=== PATIENT | male | born 1990 | race Caucasian/White ===

== ENCOUNTER → 2018-06-01 | Day surgery (SDC) | payer BC ==
[~2018-06-01] MED LIST: ADDERALL XR 2525 MG PO; FENTANYL CITRATE/PF 100MCG/2 ML INJ ONE; LIDOCAINE HCL 2% LOCAL INJ 5 ML SDV VIAL INJ ONE; METOPROLOL SUCC25 MG PO; MIDAZOLAM HCL 2 MG/2 ML VIAL ONE; PROPOFOL IV EMULSION 10 MG/ML 20 ML VIAL ONE; TRAZODONE HCL50 MG PO; TYLENOL # 31 EA PO; ZANTAC 7575 MG PO; ZOFRAN4 MG PO
[2018-06-01 10:45] VITALS: BP 125/68
--- NOTE | 2018-06-01 15:32 | Operative Report ---
DATE OF PROCEDURE: 06/01/2018 SURGEON: Enrique Harper MD PREOPERATIVE DIAGNOSIS: Chronic gastroesophageal reflux disease. POSTOPERATIVE DIAGNOSES: 1. Hiatal hernia. 2. Chronic gastroesophageal reflux disease. 3. Distal esophagitis near the GE junction. PREOPERATIVE INDICATION: Assess for mucosal disease, rule out hiatal hernia. PROCEDURE: Esophagogastroduodenoscopy with distal esophageal biopsy (CPT 46977). GOVERNMENT RELATIONS MANAGER: None. ANESTHESIA: Moderate sedation. GRAFTS: None. COMPLICATIONS: None. DRAINS: None. ESTIMATED BLOOD LOSS: Minimal. SPECIMENS: Distal esophageal biopsy at the GE junction. FINDINGS: 1. Small hiatal hernia. 2. Distal esophagitis near the GE junction. 3. Otherwise normal upper GI endoscopy. PROCEDURE IN DETAIL: The patient was brought to the endoscopy suite and was sedated with IV propofol. A preprocedure pause was performed. An adult-sized endoscope was introduced into the oropharynx and guided to the second portion of the duodenum. No duodenal or gastric abnormalities near the antrum were seen. There was a small hiatal hernia with distal esophagitis biopsied at the GE junction where the esophagitis was present and was obtained using cold forceps. Prior to removing the endoscope, I desufflated the stomach and the endoscope was removed. The patient tolerated the procedure well. Type of wound is type 1, clean. Enrique Harper MD [facility] /[id number]
== END | disposition home or self-care (01) ==
LOC: OR 08:02
PROVIDERS: ATTEND Surgery
DX: K21.9 Gastro-esophageal reflux disease without esophagitis (principal); K20.9 Esophagitis, unspecified; K44.9 Diaphragmatic hernia without obstruction or gangrene; I10 Essential (primary) hypertension; E66.01 Morbid (severe) obesity due to excess calories; Z68.37 Body mass index [BMI] 37.0-37.9, adult
CPT/HCPCS: 43239; J2001; J2250; J2704

== ENCOUNTER 2018-06-08 05:31 | Inpatient (IN) | payer BC ==
[~2018-06-08] VITALS: Ht 193 cm; Wt 136.1 kg
[~2018-06-08 05:31] MED LIST changes: -FENTANYL CITRATE/PF 100MCG/2 ML INJ ONE; -LIDOCAINE HCL 2% LOCAL INJ 5 ML SDV VIAL INJ ONE; -MIDAZOLAM HCL 2 MG/2 ML VIAL ONE; -PROPOFOL IV EMULSION 10 MG/ML 20 ML VIAL ONE; -TYLENOL # 31 EA PO; -ZOFRAN4 MG PO
[2018-06-08] MEDS ORDERED: CEFAZOLIN SOD 2 GM/D5W 50ML 50 ML IV ONE (06:24)
[2018-06-08 06:53] LABS: BASOPHILS # (AUTO) 0.1 (0.0-0.1); BASOPHILS % 0.7 % (0.0-1.0); EOSINOPHILS # (AUTO) 0.2 (0.0-0.4); EOSINOPHILS % 2.4 % (0.0-6.0); HEMATOCRIT 55.1 % (38.2-49.6); HEMOGLOBIN 18.9 g/dL (14.0-18.0); LYMPHOCYTES # (AUTO) 1.7 (1.0-3.2); MEAN CORPUSCULAR HEMOGLOBIN 30.6 pg (28-32); MEAN CORPUSCULAR HGB CONC 34.3 g/dL (31-35); MEAN CORPUSCULAR VOLUME 89.2 fL (81-99); MONOCYTES # (AUTO) 0.7 (0.2-0.8); MONOCYTES % 9.4 % (4.4-11.3); NEUTROPHILS % 65.1 % (38.7-80.0); PLATELET COUNT 249 x10e3/uL (140-360); RED BLOOD COUNT 6.18 x10e6/uL (4.3-5.7); RED CELL DISTRIBUTION WIDTH 12.7 % (11.7-14.4)
--- NOTE | 2018-06-08 07:10 | NUR ---
SPIRITUAL CARE - Pre-Surgery Assessment: Pt in bed. Pt's dad at bedside. Pt reported supportive attention from family and friends. Intervention: I provided pastoral presence, hospitality, and sympathetic listening. I acquainted pt with availability of teacher lip reading while hospitalized. Outcome: Pt expressed appreciation for visit. No need for follow up indicated at this time. [facility] Spiritual Care Department O: [phone] Pager: [phone] ([phone] calling from)
[2018-06-08] MEDS ORDERED: BUPIVACAINE 0.25% 30ML SDV INJ ONE (08:09)
[2018-06-08] MEDS ORDERED: SCOPOLAMINE 1.5 MG PATCH TOP SCH (09:30)
[2018-06-08] MEDS ORDERED: ONDANSETRON HCL INJ 2MG/ML 2ML 2 MG/ML VIAL IV PRN (09:30)
[2018-06-08] MEDS ORDERED: MORPHINE SULFATE INJ 4 MG/ML INJ 1ML ONE (09:37)
[2018-06-08] MEDS ORDERED: ONDANSETRON HCL INJ 2MG/ML 2ML 2 MG/ML VIAL ONE ×2 (10:07→17:35)
[2018-06-08] MEDS ORDERED: HYDROMORPHONE 2MG/ML 2 MG/ML ML ONE (10:53)
[2018-06-08] MEDS ORDERED: METOCLOPRAMIDE HCL 10 MG/2ML VIAL ONE (10:54)
--- NOTE | 2018-06-08 12:36 | Operative Report ---
DATE OF PROCEDURE: 06/08/2018 SURGEON: Enrique Harper MD PREOPERATIVE DIAGNOSES: 1. Hiatal hernia. 2. Chronic gastroesophageal reflux disease. POSTOPERATIVE DIAGNOSES: 1. Hiatal hernia. 2. Chronic gastroesophageal reflux disease. PREOPERATIVE INDICATIONS: Treat disease, prevent complications from hiatal hernia and GERD. PROCEDURE: Laparoscopic hiatal hernia repair. ANESTHESIA: General. CLEARANCE CENTER MANAGER: Iker Mcneill, surgical corsetier (needed due to complexity of case). FLUIDS: 2 liters of crystalloid. ESTIMATED BLOOD LOSS: 20 mL. DRAINS: None. COMPLICATIONS: None. SPECIMENS: None. GRAFTS: None. FINDINGS: Small hiatal hernia. PROCEDURE IN DETAIL: The patient was brought to the operating room and was intubated under general endotracheal anesthesia. He was sterilely prepped and draped in the usual fashion. A preprocedure pause was performed identifying the patient, use of perioperative antibiotics, intended procedure, and the staff surgeon. Access was gained via a 5 mm left subcostal incision using Veress needle. Abdomen was insufflated and four additional trocars were placed in standard position. Liver retractor was used to expose the hiatus. The gastrohepatic ligament was incised along the pars flaccida technique and the hernia sac was dissected off the left and right david to expose the hiatal hernia. This was then repaired with 2-0 Surgidac suture in an interrupted fashion. We achieved hemostasis, closed the large port site with 0 Vicryl suture, removed the trocars, the abdomen was desufflated and liver retractor was removed. We closed the incision site with 4-0 Monocryl suture in a subcuticular fashion. Dermabond dressings were applied. The patient tolerated the procedure well. Type of wound is type 1, clean. Enrique Harper MD [facility] /[id number]
--- NOTE | 2018-06-08 15:53 | Operative Report ---
DATE OF PROCEDURE: 06/08/2018 SURGEON: Enrique Harper MD PREOPERATIVE DIAGNOSES: 1. Morbid obesity, BMI 37. 2. Hypertension. 3. Hiatal hernia. POSTOPERATIVE DIAGNOSES: 1. Morbid obesity, BMI 37. 2. Hypertension. 3. Hiatal hernia. PREOPERATIVE INDICATIONS: Treat disease, prevent complications related to comorbid conditions of obesity. PROCEDURE: Laparoscopic vertical sleeve gastrectomy. ANESTHESIA: General. SURFACE SHIP USW SUPERVISOR: Iker Mcneill, assistant loan processor (needed due to complexity of case). FLUIDS: 2 liters of crystalloid. ESTIMATED BLOOD LOSS: 20 mL. DRAINS: None. COMPLICATIONS: None. SPECIMENS: Partial stomach. GRAFTS: None. FINDINGS: 1. Small hiatal hernia, otherwise normal upper GI anatomy. 2. Negative intraoperative EGD leak test. PROCEDURE IN DETAIL: The patient was brought to the operating room and was intubated under general endotracheal anesthesia. He was sterilely prepped and draped in the usual fashion. A preprocedure pause was performed identifying the patient, use of perioperative antibiotics, intended procedure, and staff surgeon. Access was gained via a 5 mm left subcostal incision and Veress needle was inserted. Peritoneal cavity was insufflated. Four additional trocars were placed and liver retractor was placed. Small hiatal hernia was identified and repaired. Greater curvature of the stomach was mobilized using [place] LigaSure device from about 4 cm proximal to the pyloric valve to the left david of the diaphragm. An adult-sized endoscope was placed along the lesser curvature of the stomach to be used as a bougie. The greater curvature of the stomach was resected using multiple firings of 60 mm Endo SUSHILA purple load Covidien stapling device, which was reinforced with SeamGuard. We conducted an intraoperative EGD leak test, no leaks were identified, the specimen now was removed to the right periumbilical port site. The port site was closed with 0 Vicryl suture using the Umesh-Jeff technique in a [id number]-ku-gpnji fashion. We then verified hemostasis, desufflated the abdomen and removed the trocars and removed the liver retractor. Incision sites were closed with 4-0 Monocryl suture in a subcuticular fashion, 0.25% bupivacaine was used at both the preperitoneal incisional sites. The patient tolerated the procedure well. Dermabond dressings were applied. All surgical sponges and instrument counts were correct. MD ETHAN Carranza/[place] /[id number]
--- NOTE | 2018-06-08 16:53 | NUR ---
RECEIVED REPORT FROM ESPERANZA IN PACU, AWAITING FOR PT TO ARRIVE TO UNIT
[2018-06-08 17:00] VITALS: BP 185/99
--- NOTE | 2018-06-08 17:00 | NUR ---
PT ARRIVED TO FLOOR AA0X3. PT IS SITTING AT EDGE OF BED. FATHER IS AT BEDSIDE. PT IS C/O PAIN TO ABD RATING 7/10 ABD HAS 5 TROCHAR SITES CLEAN AND OPEN TO AIR PT HAS A LEFT FA 20 G. PATENT AND DRY PT IS NPO AND AWARE OF DIET ORDERS WILL ASSESS PT AND CHECK EMAR FOR PAIN MANAGEMENT OPTIONS WILL CONTINUE TO CARE FOR PT AT THIS TIME , SIDE RAILSX2, BED WHEELS LOCKED ,CALL LIGHT IS WITHIN EASY REACH, INSTRUCTED TO CALL FOR ASSISTANCE IF NEEDED
[2018-06-08 17:11] VITALS: BP 185/99
[2018-06-08] MEDS: MORPHINE SULFATE INJ 4 MG/ML INJ 1ML IV PRN ×2 (17:20→21:45)
[2018-06-08] MEDS: SODIUM CHLORIDE 0.9% 1000ML 1,000 ML IV SCH ×2 (17:25→18:36)
[2018-06-08] MEDS ORDERED: ACETAMINOPHEN 1000 MG/100 ML IV ONE (17:35)
[2018-06-08] MEDS ORDERED: PROPOFOL IV EMULSION 10 MG/ML 20 ML VIAL ONE (17:35)
[2018-06-08] MEDS ORDERED: EPHEDRINE SULFATE INJ 50 MG/10 ML SYR ONE (17:35)
[2018-06-08] MEDS ORDERED: PHENYLEPHRINE HCL 1% 10 MG/ML VIAL ONE (17:35)
[2018-06-08] MEDS ORDERED: SEVOFLURANE INHAL SOLN 250 ML PEN BTL ONE (17:35)
[2018-06-08] MEDS ORDERED: NEOSTIGMINE 5 MG/5ML SYR ONE (17:35)
[2018-06-08] MEDS ORDERED: DEXAMETHASONE SOD PHOS INJ 4 MG/ML VIAL ONE (17:35)
[2018-06-08] MEDS ORDERED: ROCURONIUM BROMIDE 10 MG/ML 5ML VIAL ONE (17:35)
[2018-06-08] MEDS ORDERED: VASOPRESSIN INJ 20 UNIT/ML VIAL ONE (17:35)
[2018-06-08] MEDS ORDERED: LIDOCAINE HCL 2% LOCAL INJ 5 ML SDV VIAL INJ ONE (17:35)
[2018-06-08] MEDS ORDERED: GLYCOPYRROLATE INJ 1MG/ 5 ML SYR ONE (17:35)
[2018-06-08] MEDS ORDERED: FAMOTIDINE 20 MG TAB PO PRN (18:00)
[2018-06-08 18:27] VITALS: BP 142/71
[2018-06-08] MEDS ORDERED: MIDAZOLAM HCL 2 MG/2 ML VIAL ONE (18:46)
[2018-06-08] MEDS ORDERED: FENTANYL CITRATE/PF 100MCG/2 ML INJ ONE (18:46)
--- NOTE | 2018-06-08 19:43 | NUR ---
SPOKE TO DR. BECERRA AT THIS TIME REGARDING PT C/O GAS PAIN AND ANXIETY MED. NEW ORDERS RCV FOR SIMETHICONE 40MG BID PRN AND LORAZEPAM 1MG BID PRN WITH SIPS OF WATER.
[2018-06-08 20:00] VITALS: BP 157/82
[2018-06-08] MEDS ORDERED: LORAZEPAM 1 MG TAB PO PRN (20:00)
[2018-06-08] MEDS: SIMETHICONE 80 MG CHEW PO PRN (20:34)
[2018-06-08] MEDS ORDERED: TRAZODONE HCL 50 MG TAB PO PRN (21:00)
--- NOTE | 2018-06-08 21:30 | NUR ---
PT AMBULATED THE HALLWAY X2, AND HAVE BEEN AMBULATING SEVERAL TIMES FROM BED TO TOILET.
[2018-06-08] MEDS: ENOXAPARIN SOD INJ 40 MG/0.4 ML SYR SC SCH (21:40)
[2018-06-08 22:09] VITALS: BP 157/82
[2018-06-09] VITALS: BP 140/65
[2018-06-09] MEDS: SIMETHICONE 80 MG CHEW PO PRN (01:42)
[2018-06-09] MEDS: SODIUM CHLORIDE 0.9% 1000ML 1,000 ML IV SCH ×2 (03:26→09:06)
[2018-06-09] MEDS: MORPHINE SULFATE INJ 4 MG/ML INJ 1ML IV PRN (03:26)
[2018-06-09 04:00] VITALS: BP 151/70
[2018-06-09 05:50] LABS: BASOPHILS % 0.2 % (0.0-1.0); HEMATOCRIT 45.9 % (38.2-49.6); HEMOGLOBIN 15.9 g/dL (14.0-18.0); LYMPHOCYTES # (AUTO) 1.2 (1.0-3.2); LYMPHOCYTES % 7.6 % (18.0-39.1); MEAN CORPUSCULAR HGB CONC 34.6 g/dL (31-35); MEAN CORPUSCULAR VOLUME 86.6 fL (81-99); MONOCYTES # (AUTO) 1.5 (0.2-0.8); NEUTROPHILS # (AUTO) 12.4 (2.1-6.9); NEUTROPHILS % 81.8 % (38.7-80.0); PLATELET COUNT 214 x10e3/uL (140-360); RED CELL DISTRIBUTION WIDTH 12.7 % (11.7-14.4)
[2018-06-09 06:10] LABS: ALANINE AMINOTRANSFERASE 64 IU/L (0-55); ALBUMIN 3.8 g/dL (3.5-5.0); ALBUMIN/GLOBULIN RATIO 1.4 (0.8-2.0); ALKALINE PHOSPHATASE 71 IU/L (40-150); ANION GAP 13.1 mmol/L (8-16); BLOOD UREA NITROGEN 13 mg/dL (7-26); BUN/CREATININE RATIO 14 (6-25); CALCIUM 9.1 mg/dL (8.4-10.2); CARBON DIOXIDE 25 mmol/L (22-29); CHLORIDE 102 mmol/L (98-107); CREATININE, SERUM 0.92 mg/dL (0.72-1.25); EST GLOMERULAR FILTRATION RATE > 60 ML/MIN (60-); GLUCOSE 111 mg/dL (74-118); MAGNESIUM 2.1 MG/DL (1.3-2.1); PHOSPHORUS 3.1 MG/DL (2.3-4.7); POTASSIUM 4.1 mmol/L (3.5-5.1); SODIUM 136 mmol/L (136-145)
[2018-06-09] MEDS ORDERED: HYDROCODONE/APAP 7.5MG-325MG 1 EA TAB PO PRN (06:30)
--- NOTE | 2018-06-09 07:43 | NUR ---
received patient in report this morning. Patient ambulated down hallways. Pain reported 8/10 while walking, 6/10 when sitting. Provided patient with med cups 30mL. Explained he can only drink 30mL per hour for the first two hours. Patient verbalized understanding. Patient sitting in chair. Family member at bedside.
[2018-06-09 07:51] VITALS: BP 163/83
--- NOTE | 2018-06-09 08:08 | NUR ---
Progress Note Subjective: Gas pains, otherwise ambulating and doing well Objective: vitals stable, afebrile; General- no distress; Abdomen- soft, incisions healing well labs reviewed A/P: POD 1, s/p lap hiatal hernia repair with sleeve gastrectomy -Start clears -Ambulate -Cont lovenox -OK to discharge home later today -Discharge instructions given to patient
[2018-06-09] MEDS ORDERED: METOPROLOL SUCCINATE 25 MG TAB XL PO SCH (09:00)
[2018-06-09] MEDS ORDERED: METOPROLOL SUCCINATE 50 MG TAB XL PO SCH (09:00)
[2018-06-09] MEDS: ENOXAPARIN SOD INJ 40 MG/0.4 ML SYR SC SCH (09:09)
[2018-06-09] MEDS ORDERED: ONDANSETRON HCL 4 MG ORAL DISINTEGRATING TAB PO PRN (09:45)
[2018-06-09 10:06] VITALS: BP 163/83
--- NOTE | 2018-06-09 10:07 | NUR ---
BARIATRIC DIET Learner(s): pt Time spent: 20minutes Barriers: none Cultural/Language Modifications: No cultural/language modifications noted. Pt speaks P[place]. Readiness: acceptance Method: explanation/ discussion, handout Topics: Bariatric diet (clear liquid, full liquid, pureed) Understanding/Compliance: good compliance expected, needs reinforcement at outpatient bariatric clinic, all questions have been answered Signed by Marleny Omer, MS, RD, LD
[2018-06-09] MEDS ORDERED: TYLENOL # 31 EA PO (10:18)
[2018-06-09] MEDS ORDERED: ZOFRAN4 MG PO (10:19)
--- NOTE | 2018-06-09 10:50 | NUR ---
L forearm IV removed at this time. Catheter tip intact. Pressure dressing applied.
--- NOTE | 2018-06-09 14:34 | Discharge Summary ---
ADMIT DIAGNOSES: 1. Obesity, BMI of 36 complicating underlying hypertension. 2. Hypertension. 3. Hiatal hernia. DISCHARGE DIAGNOSES: 1. Status post laparoscopic sleeve gastrectomy. 2. Status post laparoscopic hiatal hernia repair. 3. Obesity, BMI of 36 complicating underlying hypertension. 4. Hypertension. HOSPITAL COURSE/HISTORY OF PRESENT ILLNESS: This is a 28-year-old white man, who was admitted to [facility] with diagnosis of obesity, BMI of 36 complicating his underlying hypertension. He also has history of hiatal hernia. During this hospitalization, the patient underwent successful laparoscopic hiatal hernia repair as well as vertical sleeve gastrectomy. This surgery was performed by his bariatric surgeon, Dr. Enrique Harper. The patient's brief hospitalization was unremarkable. His condition on discharge was stable. During this hospitalization, the patient was counseled on the dangers of taking amphetamines, namely Adderall since he has underlying hypertension. On discharge, the patient was tolerating a full liquid diet. REVIEW OF SYSTEMS: GENERAL: Weight has been stable. No fever and chills. HEENT: No headache. No vision changes. CARDIOVASCULAR: No chest pain. No cough. No palpitations. GI: Denies any flatus or bowel movements, but he has been belching frequently. He has mild pain, but it is controlled. No nausea or vomiting. : No Vazquez catheter in place. NEUROMUSCULAR: Denies any limb weakness or numbness. PAST SURGICAL HISTORY: 1. Excess skin resection several years ago. 2. Status post laparoscopic hiatal hernia repair and sleeve gastrectomy on June 08, 2018. FAMILY HISTORY: Father and paternal grandfather with hypertension. ALLERGIES: NO KNOWN DRUG ALLERGIES. HOME MEDICATIONS: 1. Adderall extended release 25 mg daily. 2. Metoprolol succinate 50 mg daily. 3. Ranitidine 75 mg daily. 4. Trazodone 50 mg at bedtime. PAST MEDICAL HISTORY: 1. Obesity, BMI of 36. 2. Hypertension. 3. Depression. SOCIAL HISTORY: This man is single. He works with computers. Denies any tobacco use. Drinks alcohol socially, perhaps twice a month. PHYSICAL EXAMINATION: GENERAL: He is awake, alert, fluent, very pleasant, cooperative with exam. Mother is a bedside. VITAL SIGNS: Height 6 feet 4 inches, weight 300 pounds, BMI of 36. Blood pressure 163/83, pulse 56, respiratory rate 18, oxygen saturation 94% on room air, temperature is 96.5. INTEGUMENT: Skin is warm and dry. No pallor, jaundice, or diaphoresis. HEENT: Anicteric sclerae with moist mucous membranes. NECK: Supple. CARDIOVASCULAR: Bradycardic rate, regular rhythm. No murmurs, gallops, or rubs appreciated. LUNGS: No rales. No rhonchi, or wheeze. ABDOMEN: Soft. No distention. No bowel sounds are appreciated at this time. The patient's laparoscopic incisions are clean, dry, intact, no infection. EXTREMITIES: No edema or deformity. He is currently wearing compression stockings. NEUROLOGICAL: Intact. No focal deficit. DIAGNOSES: 1. Status post laparoscopic vertical sleeve gastrectomy. 2. Status post laparoscopic hiatal hernia repair. 3. Obesity, BMI of 36 complicating underlying hypertension. 4. Hypertension. 5. Depression. PLAN: 1. We will discharge home today on full liquid diet. 2. I informed the patient that stimulants such as Adderall can raise his blood pressure. 3. The patient will resume home medications in addition to Tylenol No. 3 one pill every 4 hours p.r.n. abdominal pain, #25 prescribed, no refills as well as Zofran 4 mg every 6 hours p.r.n. nausea and vomiting, #20 prescribed, no refills. 4. Recommend the patient limit his dietary sodium intake because of his hypertension. 5. The patient to follow up with his new primary care physician, Dr. Narayan Hathaway, within 2-3 weeks. 6. The patient will follow with Dr. Enrique Harper within one week. MD DEBORA BhattO/TIMOTHYL /[id number] cc: Enrique Harper MD MTDD
== END 2018-06-09 10:52 | disposition home or self-care (01) | DRG 621 ==
LOC: OR 05:31 → PACU V 09:37 → MED/SURG 17:04
PROVIDERS: ADMIT Internal Medicine; ATTEND Internal Medicine
PROC: 0DB64Z3 Excision of Stomach, Percutaneous Endoscopic Approach, Vertical (ICD-10-PCS; principal; 2018-06-08 07:30)
PROC: 0BQT4ZZ Repair Diaphragm, Percutaneous Endoscopic Approach (ICD-10-PCS; 2018-06-08 07:30)
DX: E66.01 Morbid (severe) obesity due to excess calories (principal); Z68.36 Body mass index [BMI] 36.0-36.9, adult; K44.9 Diaphragmatic hernia without obstruction or gangrene; I10 Essential (primary) hypertension; F32.9 Major depressive disorder, single episode, unspecified
CPT/HCPCS: 36415; 80053; 83735; 84100; 85025; 93005; J0690; J1100; J1650; J2001; J2250; J2270; J2370; J2405; J2765; J7030